=== PATIENT | female | born 1985 | race Caucasian/White ===

== ENCOUNTER 2018-07-16 18:54 | Emergency (ER) | payer MEDICAID, OTHER ==
[2018-07-16 19:19] VITALS: BP 138/96
[2018-07-16] MEDS ORDERED: XYLOCAINE 1% 20 mL INFILTRATI ONE (21:26)
[2018-07-16] MEDS ORDERED: LIDOCAINE VISCOUS 2% MM NR (21:30)
--- NOTE | 2018-07-16 22:05 | Emergency Department Report ---
ED General Adult HPI - General Chief complaint: Dental/Oral Stated complaint: TOOTHACHE Time Seen by Provider: 07/16/18 20:25 Source: patient Mode of arrival: Ambulatory Limitations: No Limitations - History of Present Illness Initial comments: The patient is a 32-year-old female past medical history of dental caries who presents with left jaw pain that has been going on for the last 2 days. Patient states the pain is a 10 out of 10 eating makes it worse and nothing makes it better she has no nausea no vomiting no headache no neck pain. She states that she has an appointment with the dentist but it is not until July. She has no fever no chills. The pain does not radiate. It is constant. Patient does not smoke and does not drink. Severity scale (0 -10): 10 - Related Data Previous Rx's Medication Instructions Recorded Last Taken Type Lidocaine/Prilocaine [Emla Cream] 5 gm TP ONCE #1 cream..g. 02/16/14 Unknown Rx Penicillin V Potassium 500 mg PO Q6H 10 Days tablet 07/16/18 Unknown Rx Tramadol HCl/Acetaminophen 1 each PO Q6H #15 tablet 07/16/18 Unknown Rx [Ultracet] Allergies Allergy/AdvReac Type Severity Reaction Status Date / Time No Known Allergies Allergy Verified 02/15/14 01:29 ED Review of Systems ROS: Stated complaint: TOOTHACHE Other details as noted in HPI Constitutional: denies: chills, fever Eyes: denies: eye pain, eye discharge, vision change ENT: dental pain. denies: ear pain, throat pain Respiratory: denies: cough, shortness of breath, wheezing Cardiovascular: denies: chest pain, palpitations Endocrine: no symptoms reported Gastrointestinal: denies: abdominal pain, nausea, diarrhea Genitourinary: denies: urgency, dysuria, discharge Musculoskeletal: denies: back pain, joint swelling, arthralgia Skin: denies: rash, lesions Neurological: denies: headache, weakness, paresthesias Psychiatric: denies: anxiety, depression Hematological/Lymphatic: denies: easy bleeding, easy bruising ED Past Medical Hx - Past Medical History Previous Medical History?: Yes Hx Hypertension: No Hx Congestive Heart Failure: No Hx Diabetes: No Hx Deep Vein Thrombosis: No Hx Renal Disease: No Hx Sickle Cell Disease: No Hx Seizures: No Hx Asthma: No Hx COPD: No Hx HIV: No - Surgical History Past Surgical History?: No - Social History Smoking Status: Current Every Day Smoker Substance Use Type: None - Medications Home Medications: Home Medications Medication Instructions Recorded Confirmed Last Taken Type Lidocaine/Prilocaine [Emla Cream] 5 gm TP ONCE #1 cream..g. 02/16/14 Unknown Rx Penicillin V Potassium 500 mg PO Q6H 10 Days tablet 07/16/18 Unknown Rx Tramadol HCl/Acetaminophen 1 each PO Q6H #15 tablet 07/16/18 Unknown Rx [Ultracet] ED Physical Exam - General Limitations: No Limitations General appearance: alert, in no apparent distress - Head Head exam: Present: atraumatic, normocephalic - Eye Eye exam: Present: normal appearance - ENT ENT exam: Present: other (poor dentition in left upper and lower molars ) - Neck Neck exam: Present: normal inspection - Respiratory Respiratory exam: Present: normal lung sounds bilaterally. Absent: respiratory distress - Cardiovascular Cardiovascular Exam: Present: regular rate, normal rhythm. Absent: systolic murmur, diastolic murmur, rubs, gallop - GI/Abdominal GI/Abdominal exam: Present: soft, normal bowel sounds - Extremities Exam Extremities exam: Present: normal inspection - Back Exam Back exam: Present: normal inspection - Neurological Exam Neurological exam: Present: alert, oriented X3 - Psychiatric Psychiatric exam: Present: normal affect, normal mood - Skin Skin exam: Present: warm, dry, intact, normal color. Absent: rash ED Course Vital Signs 07/16/18 19:15 Temperature 99 F Pulse Rate 85 Respiratory 14 Rate Blood Pressure 138/96 O2 Sat by Pulse 100 Oximetry - Nerve Block Consent Obtained: verbal consent Local Anesthetic Used: Lidocaine 1% Amount of anesthesia used: 6 Side: left Intraoral Nerve Block: superior alveolar, inferior alveolar Procedure Successful: Yes Complications: none Patient Tolerated Procedure: well ED Medical Decision Making - Medical Decision Making Cdx: Dental carries ddx: Periapical abscess, impacted wisdom tooth I will do dental block and will send patient home with antibiotics and oral pain medication Discussed plan with patient. Patient agrees with plan additonal verbal discharge instructions were given. Critical care attestation.: If time is entered above; I have spent that time in minutes in the direct care of this critically ill patient, excluding procedure time. ED Disposition Clinical Impression: Infected dental carries, Pain, dental Disposition: [id number] TO HOME OR SELFCARE Is pt being admited?: No Does the pt Need Aspirin: No Condition: Stable Instructions: Toothache (ED), Lidocaine/Epinephrine (Injection) Additional Instructions: 1. [facility] 3 miles away from [address] - [address] [facility] Dental Clinic: [address] miles from [place] Clinic hours: Mondays through 8:30am - 4:30pm. The [facility] dental clinic provides comprehensive oral health care for all children ages 1-18 years old. Services offered include oral examinations, intra- oral and panoramic radiographs, and emergencies. Preventive servic website See Clinic Full Details 2. [facility], [facility] 10 miles away from [address], [address] [facility] [address] Nearby Dental Clinic: 10 miles from [place] Dental Services: Dental Services will be scheduled by appointment when possible. At this time, they have specific days and times dedicated to Dental Services. The following services will be provided: Prophylaxis Exams Intraoral & Panorex x-rays Home care instructions Diet co email website See Clinic Full Details 3. [facility], [facility] 11 miles away from [address] [address] Near[facility] Dental Clinic: 11 [address] from [facility], [facility] provides affordable medical and dental care to low income residents through the use of a sliding fee discount schedule. The fee schedule is based on income and family size. The most requested dental services include exams, fillings, cleanings and extractions, as we website donate See Clinic Full Details 4. [facility] 11 miles away from [address] [place] - [address] Nearby Dental Clinic: 11 miles from [place] Provides primary care and a dental care clinic. Hours: Call for hours as they change frequently. The [facility] partners with free clinics and service providers across the [facility] to make health care services more accessible to low-income [place] residents. To access care, website See Clinic Full Details 5. [facility] 12 miles away from [place] [address] [place], [place] - [address] Nearby Dental Clinic: 12 miles from [place] Non [employer]fit [facility]. Same day appointments are available. The [facility]. gladly accepts the following methods of payment for services: Medicare/Medicaid Most private insurance plans, including Humana, Blue Cross Blue Shied, Aetna, HMO, PP website donate See Clinic Full Details 6. [facility] 12 miles away from [place] [address] [facility] [address] Nearby Dental Clinic: 12 miles from [place] The [facility] provides education and clinical services throughout [facility]. The goal is to promote good oral health. Clinical services are available to: children and teens (ages 3-20) women adults age 60 and over persons referred by [facility] [place] website See Clinic Full Details 7. [facility] Location [facility] Location 12 miles away from [place] [address] [place], [place] - [address] Near[facility] Dental Clinic: 12 miles from [place] Professional staff provides a variety of dental services including cleanings, fluoride treatments, filings, extractions, as well as, referrals for dentures and partials to patients from resident assistant through adulthood.Sliding Fee Scale Eligible Clinic. Bring proof of income, current ID and proof o website See Clinic Full Details 8. [facility] 13 miles away from [place] [address] [place] - [address] Nearby Dental Clinic: 13 miles from [place] Sponsored by the [facility], [facility] was created in 1984 by volunteer nurses and physicians that provides primary health care, education and social media assistant reaching thousands of persons in need throughout [place] each year. They currently o website See Clinic Full Details 9. [employer] [facility] [employer] [facility] 14 miles away from [place] [address] [place] [place], [place] - [address] Nearby Dental Clinic: [address] [facility], [facility] offers School based clinics that provide full medical, mental and dental services to students and their siblings from through 18 years of age and limited mental and dental services to adults in the area. Services are p email website donate See Clinic Full Details 10. [facility] 14 miles away from [place] [address], [place] - [address] Nearby Dental Clinic: 14 miles from [place] [facility] providing dental care services on a sliding fee scale to those who are eligible. email website donate See Clinic Full Details Prescriptions: Penicillin V Potassium 500 mg PO Q6H 10 Days tablet Tramadol HCl/Acetaminophen [Ultracet] 1 each PO Q6H #15 tablet Referrals: KINZA RENDON MD [Primary Care Provider] - 3-5 Days
== END 2018-07-16 21:30 | disposition home or self-care (01) ==
LOC: ED 18:54
DX: K02.9 Dental caries, unspecified (principal); K04.7 Periapical abscess without sinus; F17.200 Nicotine dependence, unspecified, uncomplicated